=== PATIENT | male | born 1995 | race Two or more races ===

== ENCOUNTER 2024-07-19 19:40 | Emergency (ER) | payer OTHER ==
[~2024-07-19] VITALS: Ht 180.3 cm; Wt 90.7 kg
[2024-07-19] MEDS ORDERED: DEXAMETHASONE SODIUM PHOSPHATE 4 MG/ML VIAL IM STA (20:44)
[2024-07-19] MEDS ORDERED: ORPHENADRINE CITRATE 30 MG/ML AMPUL IM STA (20:44)
[2024-07-19] MEDS ORDERED: DEXAMETHASONE SODIUM PHOSPHATE 4 MG/ML VIAL ONE (20:51)
[2024-07-19] MEDS ORDERED: ORPHENADRINE CITRATE 30 MG/ML AMPUL ONE (20:51)
[2024-07-19] MEDS ORDERED: MEDROLPACK PO (22:07)
== END 2024-07-19 22:19 | disposition home or self-care (01) ==
LOC: ER 19:42
DX: M75.31 Calcific tendinitis of right shoulder (principal); Z88.6 Allergy status to analgesic agent

== ENCOUNTER 2024-08-08 09:34 | Outpatient (CLI) | payer OTHER ==
[~2024-08-08 09:34] MED LIST: MEDROLPACK PO
== END 2024-08-08 09:36 | disposition home or self-care (01) ==
LOC: SONOGRAMA 09:34
PROVIDERS: ATTEND Physical Medicine & Rehabilitation Sports Medicine
DX: M25.511 Pain in right shoulder (principal); M75.51 Bursitis of right shoulder; M75.111 Incomplete rotator cuff tear or rupture of right shoulder, not specified as traumatic

== ENCOUNTER 2024-12-10 14:44 | Emergency (ER) | payer OTHER ==
[~2024-12-10] VITALS: Ht 180.3 cm; Wt 91.6 kg
[2024-12-10] MEDS ORDERED: ACETAMINOPHEN 500 MG GEL..CAP PO ONE ×2 (18:00→18:19)
[2024-12-10 18:37] LABS: HEMOGLOBIN 14.3 g/dL (13-16.00); MEAN CORPUSCULAR HEMOGLOBIN 22.1 pg (27.00-32.0); MEAN CORPUSCULAR HGB CONC 32.4 g/dl (32.0-36.0); PLATELET COUNT 191 K/uL (150-450); RED BLOOD COUNT 6.46 M/uL (4.00-6.00); RED CELL DISTRIBUTION WIDTH 16.1 % (11.5-14.5)
[2024-12-10 18:41] LABS: MEAN CELL VOLUME 68.1 fL (80.0-100.00)
[2024-12-10] MEDS ORDERED: GILTUSS COUGH-118 M1 PO (20:46)
[2024-12-10] MEDS ORDERED: ACETAMINOPHEN500 M1 PO (20:46)
== END 2024-12-10 22:24 | disposition home or self-care (01) ==
LOC: ER 14:47
PROVIDERS: Preventive Medicine Public Health & General Preventive Medicine
DX: B34.9 Viral infection, unspecified (principal); Z88.6 Allergy status to analgesic agent